=== PATIENT | male | born 1980 | race Caucasian/White ===

== ENCOUNTER 2022-12-15 18:30 | Outpatient (CLI) | payer OTHER | END 2022-12-15 23:59 | disposition short-term general hospital (02) | LOC: EMS 18:30 | DX: I21.3 ST elevation (STEMI) myocardial infarction of unspecified site (principal) | CPT/HCPCS: A0425; A0427 ==

== ENCOUNTER 2023-03-15 10:38 | Outpatient (CLI) | payer OTHER ==
--- NOTE | 2023-03-15 12:40 | XRAY Report ---
PROCEDURE: Lumbar Spine 2-3V INDICATIONS: Low Back Pain TECHNIQUE: 2 views of the lumbar spine were acquired. COMPARISON: None. FINDINGS: Bones: 5 [id number] vertebrae are present. Trace leftward convex curvature. No vertebral body compression fractures. No suspicious bony lesions. Multilevel disc space narrowing and degenerative endplate changes. Multilevel facet hypertrophy. Soft tissues: Overlying bowel gas pattern is normal. No suspicious soft tissue calcifications. IMPRESSION: Moderate multilevel spondylosis. Reviewed by: Ren Yen MD on 03/15/2023 12:38 PM PST Approved by: Ren Yen MD on 03/15/2023 12:38 PM PST Station ID: [id number]
--- NOTE | 2023-03-15 12:41 | XRAY Report ---
PROCEDURE: Hip w/Pelvis 2-3V LT INDICATIONS: Left hip pain TECHNIQUE: AP view the pelvis and lateral view of the left hip. COMPARISON: None. FINDINGS: Bones: No acute fractures or dislocations. No suspicious bony lesions. Minimal symmetric degenera tive changes are seen in the hips bilaterally. Degenerative changes are seen in the included lumbar s pine. Soft tissues: No suspicious soft tissue calcifications. IMPRESSION: Minimal osteoarthrosis. No acute osseous abnormality. If symptoms persist or there is continued clini chica concern, further evaluation with MRI or CT may be helpful. Reviewed by: Ren Yen MD on 03/15/2023 12:39 PM PST Approved by: Ren Yen MD on 03/15/2023 12:39 PM PST Station ID: [id number]
== END 2023-03-15 10:39 | disposition home or self-care (01) ==
LOC: DI 10:38
PROVIDERS: ATTEND Internal Medicine
DX: M16.12 Unilateral primary osteoarthritis, left hip (principal); M47.816 Spondylosis without myelopathy or radiculopathy, lumbar region